=== PATIENT | male | born 1955 | race Caucasian/White ===

== ENCOUNTER 2018-08-31 16:11 | Inpatient (IN) | payer OTHER ==
[~2018-08-31] VITALS: Ht 185.4 cm; Wt 103.0 kg
--- NOTE | 2018-08-31 16:14 | ERD ---
ER Documentation Chief Complaint Chief Complaint Generalized weakness HPI The patient is a 62-year-old male, presenting to the ER because of generalized weakness for 1 day, he has been out of the sun for the last couple days and did not drink adequate fluids, he fell with and had a mechanical fall onto the couch yesterday, denies any head trauma, neck pain, chest pain, dyspnea, abdominal pain, vomiting, dysuria, diarrhea. He does not smoke nor drink nor does illicit drug Past medical/surgical history: None ROS All systems reviewed and are negative except as per history of present illness. Medications Home Meds No Active Prescriptions or Reported Meds Allergies Allergies: Coded Allergies: No Known Allergy (Unverified , 08/31/18) Physical Exam Vitals Vital Signs Date Temp Pulse Resp B/P (MAP) Pulse Ox O2 O2 Flow FiO2 Time Delivery Rate 08/31/18 98.6 68 18 139/72 98 16:15 (94) Physical Exam Const: No acute distress. Head: Atraumatic. Eyes: Normal Conjunctiva. ENT: Normal External Ears, Nose and Mouth. Neck: Full range of motion. No meningismus. Resp: Clear to auscultation bilaterally. Cardio: Regular rate and rhythm. Abd: Soft, non distended, normal bowel sounds, non tender. Skin: No petechiae or rashes. Back: No midline or flank tenderness. Ext: No cyanosis, or edema. Neur: Awake and alert. No focal deficit Psych: Normal Mood and Affect. Result Diagram: 08/31/18 1626 08/31/18 1626 Results 24 hrs Laboratory Tests Test 08/31/18 16:26 08/31/18 17:46 White Blood Count 22.2 10^3/ul Red Blood Count 5.35 10^6/ul Hemoglobin 14.6 g/dl Hematocrit 44.2 % Mean Corpuscular Volume 82.6 fl Mean Corpuscular Hemoglobin 27.3 pg Mean Corpuscular Hemoglobin Concent 33.0 g/dl Red Cell Distribution Width 14.1 % Platelet Count 293 10^3/UL Mean Platelet Volume 9.8 fl Immature Granulocytes % 0.200 % Neutrophils % % Segmented Neutrophils % (Manual) 22 % Lymphocytes % % Lymphocytes % (Manual) 69 % Monocytes % % Monocytes % (Manual) 7 % Eosinophils % % Eosinophils % (Manual) 2 % Basophils % % Nucleated Red Blood Cells % 0.0 /100WBC Immature Granulocytes # 0.050 10^3/ul Neutrophils # 10^3/ul Lymphocytes (Manual) 15.3 10^3/ul Lymphocytes # 10^3/ul Monocytes # 10^3/ul Monocytes # (Manual) 1.5 10^3/ul Eosinophils # 10^3/ul Basophils # 10^3/ul Nucleated Red Blood Cells # 10^3/ul Sodium Level 142 mmol/L Potassium Level 3.7 mmol/L Chloride Level 107 mmol/L Carbon Dioxide Level 27 mmol/L Anion Gap 8 Blood Urea Nitrogen 10 mg/dl Creatinine 0.89 mg/dl Est Glomerular Filtrat Rate mL/min > 60 mL/min Glucose Level 104 mg/dl Calcium Level 9.4 mg/dl Creatine Kinase 183 IU/L Bedside Urine pH (LAB) 6.0 Bedside Urine Protein (LAB) Negative Bedside Urine Glucose (UA) Negative Bedside Urine Ketones (LAB) Negative Bedside Urine Blood Trace-intact Bedside Urine Nitrite (LAB) Negative Bedside Urine Leukocyte Esterase (L Negative Procedures/MDM [place] [id number] Radiology Main Line: [phone] DIAGNOSTIC IMAGING REPORT Patient: FRAN BRITT : 1955 Age: 62 Sex: M MR #: [id number] DOS: 08/31/18 1645 Ordering MD: VERNON CASTILLO MD Location: E/R Room/Bed: PROCEDURE: CT Brain without contrast. CLINICAL INDICATION: Syncope. Trauma. TECHNIQUE: A CT of the brain was performed on a [facility] CT scanner utilizing axial imaging from the skull base through the vertex without IV contrast. Multiplanar reformatted images were made. Images were reviewed on a PACS workstation. The CTDIvol is 40 mGy and the DLP is 634 mGycm. DICOM images are available. One or more of the following dose reduction techniques were utilized: 1.) Automated exposure control 2.) Adjustment of the mA +/- kV according to patient's size 3.) Use of iterative reconstruction technique. COMPARISON: None FINDINGS: There is no intracranial hemorrhage, mass effect, or midline shift. No extra- axial fluid collection is seen. The ventricles and sulci are normal in size and configuration. Noted is a a well-demarcated non-hemorrhagic infarct on the superior medial aspect of the right cerebellar hemisphere. This is of unknown chronicity. the cuello white matter differentiation appears well-preserved. The visualized paranasal sinuses and osseous structures are grossly unremarkable. There is no skull fracture or scalp hematoma. IMPRESSION: No intracranial hemorrhage or skull fracture. Right cerebellar infarct of unknown chronicity. Consider MRI with diffusion weighting for more definitive diagnosis. .Reuben Myers MD, MD Date Time Electronically viewed and signed by .Reuben Myers MD, MD on 08/31/2018 17:13 .A/ CC: VERNON CASTILLO MD [phone] [place] [id number] Radiology Main Line: [phone] DIAGNOSTIC IMAGING REPORT Patient: FRAN BRITT : 1955 Age: 62 Sex: M MR #: [id number] DOS: 08/31/18 1621 Ordering MD: VERNON CASTILLO MD Location: E/R Room/Bed: PROCEDURE: XR Chest, 1 View CLINICAL INDICATION: Chest pain. TECHNIQUE: Frontal view of the chest. COMPARISON: None FINDINGS: LUNGS: No consolidative pulmonary infiltrates noted. PLEURAL SPACE: Unremarkable. No pneumothorax. HEART: Unremarkable. No cardiomegaly. MEDIASTINUM: Unremarkable. BONES/JOINTS: Degenerative spine changes are noted. VASCULATURE: The thoracic aorta is mildly tortuous. IMPRESSION: No acute cardiopulmonary disease demonstrated. RPTAT: [facility] Nikos Bose Physician Date Time Electronically viewed and signed by Nikos Bose Physician [employer] on 08/31/2018 16:38 RmC/ CC: VERNON CASTILLO MD [phone] EKG: Read by emergency physician Rate/Rhythm: Sinus bradycardia 54 beats/min QRS, ST, T-waves: No ST elevation, no T inversion Impression: Abnormal EKG MEDICAL MAKING DECISION: The patient is a 62-year-old male, presenting with acute generalized weakness, cerebellar infarct of the unknown, chronicity acute leukocytosis of unclear etiology. Blood culture and urine culture were submi tted. He was treated empirically with Rocephin 1 g IV The differential diagnoses considered include but are not limited to cerebellar stroke, UTI, pneumonia Departure Diagnosis: Primary Impression: Acute weakness Additional Impression: Leukocytosis Condition: Stable Comments I discussed the findings with the patient. I am waiting for the admitting physician Disclaimer: Inadvertent spelling and grammatical errors are likely due to EHR/dictation software use and do not reflect on the overall quality of patient care. Also, please note that the electronic time recorded on this note does not necessarily reflect the actual time of the patient encounter. VERNON CASTILLO MD Aug 31, 2018 16:14
[2018-08-31] MEDS ORDERED: ASPIRIN 325 MG TAB PO ONE (19:30)
[2018-09-01] MEDS: ASPIRIN (EC) 325 MG TAB PO SCH (09:32)
--- NOTE | 2018-09-01 11:19 | CONSI ---
Assessment/Plan Assessment/Plan Assessment/Plan (Recall) 62 M w/o reported cerebrovascular risk factors, who presents for evaluation of dizziness, incoordination, and falls x [address] revealed an age-indeterminate R cerebellar infarction, for which neurology is consulted. P: MRI brain for further characterization d/c CUS; Add CTA head and neck to evaluate the intracranial and posterior extracranial circulation Await Echocardiogram (w/ bubble study) Add ESR, RPR, UDS Agree w/ asa daily for now Add Lipitor hs PT/OT/ST as necessary Other management and supportive care per primary Will follow clinically Consultation Date/Type/Reason Admit Date/Time Type of Consult Neurology Reason for Consultation stroke Requesting Provider: BRIGIDO STEELE MD Date/Time of Note DATE: 09/01/18 TIME: 11:10 Hx of Present Illness 62 M s/ reported PMHx, who presents for evaluation of dizziness, vision change, and gait imbalance. Sx began 2 days ago.. Now incoordination persists in his right hand.. Denies headache, slurred speech, focal weakness or numbness or other acute neurologic concerns at this time. 12 PT ROS ow neg Objective Exam Vitals Vital Signs Date Temp Pulse Resp B/P (MAP) Pulse Ox O2 O2 Flow FiO2 Time Delivery Rate 09/01/18 72 18 125/83 99 Room Air 08:30 (97) 09/01/18 98.1 06:30 Exam PE: Gen Appearance: No Apparent Distress HEENT: Normocephalic Cardiovascular: Regular rate Lungs: Clear bilaterally Abdomen: Soft Extremities: Dry NE: The patient was alert and oriented. Language was mildly dysfluent. Fund of knowledge was adequate. Pupils were equal and reactive to light. There was no afferent pupillary defect. Visual frias were normal. Funduscopic examination was limited. Extra-ocular movements were full. Ptosis was absent. There was no nystagmus. Facial sensation was normal. Face was symmetric with normal strength. Hearing was intact. Palate movements were normal. Neck strength was normal. There was normal tongue bulk and speed of movement. Tone was normal. Muscle bulk was normal. I did not see fasciculations. Arms and legs were strong. Vibration sensation was normal. Temperature and pinprick sensation was normal. Rapid alternating movements were slow on the right. There was dysmetria on the right. There was no intention tremor. Gait was deferred due to bedrest. Arm and leg reflexes were 2+ and symmetric. Kennedy's sign was absent. Plantar responses were flexor. Results Result Diagram: 09/01/18 0623 09/01/18 0623 Results 24hrs Laboratory Tests Test 08/31/18 16:26 08/31/18 17:46 09/01/18 06:23 09/01/18 06:32 White Blood Count 22.2 H 21.3 H Red Blood Count 5.35 5.37 Hemoglobin 14.6 14.6 Hematocrit 44.2 44.7 Mean Corpuscular 82.6 83.2 Volume Mean Corpuscular 27.3 L 27.2 L Hemoglobin Mean Corpuscular 33.0 32.7 Hemoglobin Concent Red Cell 14.1 14.3 Distribution Width Platelet Count 293 269 Mean Platelet 9.8 9.4 Volume Immature 0.200 0.200 Granulocytes % Neutrophils % 35.9 L Segmented 22 L Neutrophils % (Manual) Lymphocytes % 57.6 H Lymphocytes % 69 H (Manual) Monocytes % 3.7 Monocytes % 7 (Manual) Eosinophils % 2.2 Eosinophils % 2 (Manual) Basophils % 0.4 Nucleated Red 0.0 0.0 Blood Cells % Immature 0.050 H 0.050 H Granulocytes # Neutrophils # 7.7 H Lymphocytes 15.3 H (Manual) Lymphocytes # 12.3 H Monocytes # 0.8 Monocytes # 1.5 H (Manual) Eosinophils # 0.5 Basophils # 0.1 Nucleated Red 0.0 Blood Cells # Sodium Level 142 143 Potassium Level 3.7 4.0 Chloride Level 107 109 Carbon Dioxide 27 26 Level Anion Gap 8 8 Blood Urea 10 12 Nitrogen Creatinine 0.89 0.80 Est Glomerular > 60 > 60 Filtrat Rate mL/min Glucose Level 104 106 Calcium Level 9.4 8.8 Creatine Kinase 183 Bedside Urine pH 6.0 (LAB) Bedside Urine Negative Protein (LAB) Bedside Urine Negative Glucose (UA) Bedside Urine Negative Ketones (LAB) Bedside Urine Trace-intact H Blood Bedside Urine Negative Nitrite (LAB) Bedside Urine Negative Leukocyte Esterase (L Total Bilirubin 0.6 Direct Bilirubin 0.00 Indirect Bilirubin 0.6 Aspartate Amino 26 Transf (AST/SGOT) Alanine 35 Aminotransferase ( ALT/SGPT) Alkaline 74 Phosphatase Total Protein 6.9 Albumin 3.7 Globulin 3.20 Albumin/Globulin 1.15 Ratio Triglycerides 155 H Level Cholesterol Level 153 LDL Cholesterol, 87 Calculated HDL Cholesterol 35 Cholesterol/HDL 4.3 Ratio Hemoglobin A1c 6.0 H Past Medical History reviewed Home Meds No Active Prescriptions or Reported Meds Medications Current Medications Aspirin (Ecotrin) 325 mg DAILY PO Last administered on 09/01/18at 09:32; Admin Dose 325 MG; Start 09/01/18 at 09:00 Sodium Chloride 1,000 ml @ 125 mls/hr Q8H IV ; Start 09/01/18 at 09:30 Allergies: Coded Allergies: No Known Allergy (Unverified , 08/31/18) Social History Smoking Status: Former smoker CARLOS PAULINO Sep 01, 2018 11:19
[2018-09-01] MEDS ORDERED: SOD CHLORIDE 0.9% 100 ML ONE (11:40)
[2018-09-01] MEDS ORDERED: IOHEXOL 100 ML ONE (11:40)
[2018-09-01] MEDS: SOD CHLORIDE 0.9% 1,000 ML IV SCH ×2 (12:05→18:18)
--- NOTE | 2018-09-01 14:52 | RADRPT ---
Echocardiogram Report Patient Name: FRAN BRITTPatient ID: [id number] : 1955 (62y 10m)Study Date: 09/01/2018 10:52:38 AM Gender: MAccession #: [id number] Tech: Abdias Jimenez ANUJA [facility] Ref.Physician: COURTNEY IVERSON Height(Cm): BSA: Weight(Kg): Quality: AdequateOrder Physician: COURTNEY IVERSON Account #: Procedures: Echocardiographic Report: Transthoracic echocardiogram with complete 2D, M-Mode, and doppler examination. Indications: Cerebrovascular Accident. Measurements: 2D/M Mode Doppler Measurement Value Normal Range Measurement Value Normal Range LVIDd 2D 4.9 [ 4.2 - 5.8 ] cm AV Peak Garrett 1.9 [ 100.0 - 170.0 ] cm/sec LVIDs 2D 3.0 [ 2.5 - 4.0 ] cm AV Peak PG 14.0 [ 2.0 - 9.0 ] mmHg LVPWd 2D 1.0 [ 0.6 - 1.0 ] cm LVOT Peak Garrett 1.2 [ 70.0 - 110.0 ] cm/sec IVSd 2D 0.9 [ 0.6 - 1.0 ] cm LVOT Peak PG 6.0 [ 2.0 - 6.0 ] mmHg AoR Diam 2D 3.2 [ 2.6 - 3.4 ] cm MV E Peak Garrett 0.8 [ 60.0 - 130.0 ] cm/sec EDV 2D 113.0 [ 62.0 - 150.0 ] ml MV A Peak Garrett 0.6 [ 100.0 - 120.0 ] cm/sec ESV 2D 34.7 [ 21.0 - 61.0 ] ml MV E/A 1.3 [ 0.8 - 1.5 ] ratio EF 2D 69.3 [ 52.0 - 72.0 ] percent MV Decel Time 236 [ 104 - 258 ] msec LA Dimen 2D 4.0 [ 3.0 - 4.0 ] cm Lat E` Garrett 0.1 [ 10.0 - 15.0 ] cm/sec Lateral E/E` 5.9 [ 1.0 - 2.0 ] ratio MV E/A 1.3 [ 0.8 - 1.5 ] ratio Findings: Left Ventricle: Normal left ventricular systolic function. Normal left ventricular cavity size. Normal left ventricular wall thickness. Ejection fraction is visually estimated at 65 %. Tissue Doppler/Mitral Doppler indices are within normal limits. Right Ventricle: Normal right ventricular size. Normal right ventricular systolic function. Left Atrium: The left atrium is normal in size. Right Atrium: The right atrium is normal in size. Mitral Valve: Normal appearance and function of the mitral valve with trace physiologic regurgitation. Aortic Valve: No significant aortic stenosis or insufficiency. Aortic cusps appear mildly calcified. Tricuspid Valve: Normal appearance and function of the tricuspid valve with trace physiologic regurgitation. Pulmonic Valve: Normal pulmonic valve appearance. Pericardium: Normal pericardium with no significant pericardial effusion. Aorta: Normal aortic root. IVC: Normal size and normal respiratory collapse consistent with normal right atrial pressure. Conclusions: Normal left ventricular systolic function. Normal left ventricular cavity size. Normal left ventricular wall thickness. Ejection fraction is visually estimated at 65 %. Tissue Doppler/Mitral Doppler indices are within normal limits. Normal right ventricular size. Normal right ventricular systolic function. The left atrium is normal in size. The right atrium is normal in size. No significant valvular stenosis or regurgitation seen. Normal pericardium with no significant pericardial effusion. Electronically Signed By: Preet Larkin 2018-09-01 14:51:54 PDT
--- NOTE | 2018-09-01 15:49 | HP ---
Date/Time of Note Date/Time of Note DATE: 09/01/18 TIME: 15:45 Assessment/Plan VTE Prophylaxis SCD applied (from Nsg): Yes Pharmacological prophylaxis: NA/contraindicated Pharm contraindication: other Lines/Catheters IV Catheter Type (from Nrs): Peripheral IV Assessment/Plan Hospital Course 62 years old male with no significant past medical history who endorses drinking energy drinks on a daily basis presented with 2 days of poor balance. On examination right sided dysmetria and poor balance was noted. CT of the head without contrast showed Right cerebellar infarct of unknown chronicity. CT angiogram of the brain was significant for suspected associated occlusion of the right superior cerebellar artery. As well as Occlusion at the left vertebral artery origin; left vertebral artery reconstitutes at the mid cervical portion and is small / irregular, with filling defect seen in the distal cervical portion suspicious for thrombus and / or dissection. Part of a CVA work-up echocardiogram with agitated saline was done which was unremarkable. Urine toxicology screen was positive for presence of amphetamines. However patient denies using any illicit drugs. #Acute cerebellar dysmetria in the setting of acute cerebrovascular accident Out of the window for TPA as his symptoms are started 2 days ago. -Follow-up with MRI of the brain - aspirin, statin, antihypertensive Norvasc -Continue telemetry monitoring, patient benefits from long-term monitoring as outpatient looking for arrhythmias -Awaiting CTA neck -Follow-up with neurology recommendations #Leukocytosis No signs of infection. No fever. Chest x-ray is unremarkable for pneumonia. No urinary symptoms.. Leukocytosis is lymphocyte predominant. -Monitor #Prophylaxis: SCDs and Pepcid Problems: (1) Cerebellar dysmetria Status: Acute (2) CVA (cerebral vascular accident) Status: Acute Result Diagram: 09/01/1862209/01/1823 Results 24hrs Laboratory Tests Test 08/31/18 16:26 08/31/18 17:46 09/01/18 06:23 09/01/18 06:32 White Blood Count 22.2 H 21.3 H Red Blood Count 5.35 5.37 Hemoglobin 14.6 14.6 Hematocrit 44.2 44.7 Mean Corpuscular 82.6 83.2 Volume Mean Corpuscular 27.3 L 27.2 L Hemoglobin Mean Corpuscular 33.0 32.7 Hemoglobin Concent Red Cell 14.1 14.3 Distribution Width Platelet Count 293 269 Mean Platelet 9.8 9.4 Volume Immature 0.200 0.200 Granulocytes % Neutrophils % 35.9 L Segmented 22 L Neutrophils % (Manual) Lymphocytes % 57.6 H Lymphocytes % 69 H (Manual) Monocytes % 3.7 Monocytes % 7 (Manual) Eosinophils % 2.2 Eosinophils % 2 (Manual) Basophils % 0.4 Nucleated Red 0.0 0.0 Blood Cells % Immature 0.050 H 0.050 H Granulocytes # Neutrophils # 7.7 H Lymphocytes 15.3 H (Manual) Lymphocytes # 12.3 H Monocytes # 0.8 Monocytes # 1.5 H (Manual) Eosinophils # 0.5 Basophils # 0.1 Nucleated Red 0.0 Blood Cells # Sodium Level 142 143 Potassium Level 3.7 4.0 Chloride Level 107 109 Carbon Dioxide 27 26 Level Anion Gap 8 8 Blood Urea 10 12 Nitrogen Creatinine 0.89 0.80 Est Glomerular > 60 > 60 Filtrat Rate mL/min Glucose Level 104 106 Calcium Level 9.4 8.8 Creatine Kinase 183 Bedside Urine pH 6.0 (LAB) Bedside Urine Negative Protein (LAB) Bedside Urine Negative Glucose (UA) Bedside Urine Negative Ketones (LAB) Bedside Urine Trace-intact H Blood Bedside Urine Negative Nitrite (LAB) Bedside Urine Negative Leukocyte Esterase (L Total Bilirubin 0.6 Direct Bilirubin 0.00 Indirect Bilirubin 0.6 Aspartate Amino 26 Transf (AST/SGOT) Alanine 35 Aminotransferase ( ALT/SGPT) Alkaline 74 Phosphatase Total Protein 6.9 Albumin 3.7 Globulin 3.20 Albumin/Globulin 1.15 Ratio Triglycerides 155 H Level Cholesterol Level 153 LDL Cholesterol, 87 Calculated HDL Cholesterol 35 Cholesterol/HDL 4.3 Ratio Hemoglobin A1c 6.0 H Test 09/01/18 11:16 09/01/18 13:50 Erythrocyte 2 Sedimentation Rate Urine Opiates Negative Screen Urine Barbiturates Negative Urine Amphetamines Positive Screen Urine Negative Benzodiazepines Screen Urine Cocaine Negative Screen Urine Cannabinoids Negative HPI/ROS Admit Date/Time Admit Date/Time Hx of Present Illness This is a very pleasant 62 years old male with no significant past medical history, no surgical history who presents with episodes of confusion and poor balance which is started on Wednesday after he had brunch with his family. He sat down when this episode happened and could not walk because of bilateral lower extremity weakness and difficulty with his balance. He found it difficult to speak. He also endorses right upper extremity numbness and weakness. Also endorses blurry vision at the time which has resolved. Patient did not seek medical attention at that time. His symptoms persisted and he presented to the emergency room yesterday evening. He denies chest pain, palpitation, change in urination or bowel habits. Denies fever or chills. Denies change in weight or appetite. Denies intolerance to higher low temperatures. Denies urinary frequency or dysuria. Family history significant for heart disease from paternal side. His dad in his 90s but he was diagnosed with valvular disease in his late 50s. Social history: Drinks alcohol socially, last drink was on Wednesday he drank 4 beers. Denies using illicit drugs. He has recently been drinking lots of energy drinks such as Monster and red bull. PMH/Family/Social Past Medical History Medications Current Medications Aspirin (Ecotrin) 325 mg DAILY PO Last administered on 09/01/18at 09:32; Admin Dose 325 MG; Start 09/01/18 at 09:00 Sodium Chloride 1,000 ml @ 125 mls/hr Q8H IV Last administered on 09/01/18at 12:05; Admin Dose 125 MLS/HR; Start 09/01/18 at 09:30 Atorvastatin Calcium (Lipitor) 40 mg HS PO ; Start 09/01/18 at 21:00 Amlodipine Besylate (Norvasc) 5 mg DAILY PO ; Start 09/01/18 at 15:30 Coded Allergies: No Known Allergy (Unverified , 08/31/18) Social History Smoking Status: Former smoker Exam/Review of Systems Vital Signs Vitals Vital Signs Date Temp Pulse Resp B/P (MAP) Pulse Ox O2 O2 Flow FiO2 Time Delivery Rate 09/01/18 99.0 50 20 150/72 99 Room Air 12:45 (98) Exam Exam Gen.: In no acute distress, pleasant and cooperative Eyes: Anicteric, conjunctiva normal, PERRLA, EOM intact HEENT: Normocephalic, atraumatic, hearing grossly intact, oral mucosa moist, no oral lesions Neck: Supple, no masses, trachea midline Cardiovascular: Regular rate and rhythm, no peripheral edema, no murmurs, no gallops, no rubs Respiratory: Clear to auscultation bilaterally, no use of accessory muscles of respiration, no wheezes, expiration not prolonged Extremities: No cyanosis, no edema, no calf tenderness, pulses bilaterally palpable, extremities warm and perfused Abdomen: Soft, not distended, nontender, bowel sounds present, no guarding, no rebound Neurological: Alert and oriented x3, speech normal, CN 2-12 no deficit, mild right upper extremity dysmetria noted, gait is impaired due to balance : No Torres catheter Dermatologic no rash, no ulcers Heme: No acute bleeding, no ecchymosis or petechia Psych: No anxiety depression, mood and affect appropriate COURTNEY IVERSON MD Sep 01, 2018 15:49
[2018-09-01 17:16] VITALS: Ht 185.4 cm; Wt 103.0 kg
[2018-09-01 17:17] VITALS: BP 169/89; PULSE 69; RESP 18
[2018-09-01 17:18] VITALS: PULSE 55
[2018-09-01] MEDS: AMLODIPINE 5 MG TAB PO SCH (18:08)
[2018-09-01 20:00] VITALS: BP 149/82; PULSE 55; RESP 20
[2018-09-01] MEDS: ATORVASTATIN 40 MG TAB PO SCH (21:17)
[2018-09-02] VITALS (14 sets, daily range): BP systolic 115–149; BP diastolic 58–85; PULSE 55–97; RESP 18–22
[2018-09-02] MEDS: SOD CHLORIDE 0.9% 1,000 ML IV SCH ×2 (02:16→10:29)
[2018-09-02] MEDS: ASPIRIN (EC) 325 MG TAB PO SCH (08:32)
[2018-09-02] MEDS: AMLODIPINE 5 MG TAB PO SCH (08:32)
--- NOTE | 2018-09-02 15:46 | CONS ---
Assessment/Plan Assessment/Plan Assessment/Plan (Recall) 62 M w/o reported cerebrovascular risk factors, who presents for evaluation of dizziness, incoordination, and falls x 2 days.. 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 CTA H/N is notable for a L vert artery irregularity suspicious for thrombus vs. dissection. UDS + amphetamines, a possible contributor to dissection.. Echocardiogram w/o bubble study is unrevealing. RPR neg; ESR 2 P: MRA head/neck for further vascular characterization Continue asa/lipitor daily for now PT/OT/ST as necessary, with plan for acute rehab on d/c where possible Other management and supportive care per primary Consultation Date/Type/Reason Admit Date/Time Aug 31, 2018 at 19:22 Type of Consult Neurology Reason for Consultation stroke Requesting Provider: BRIGIDO STEELE MD Date/Time of Note DATE: 09/02/18 TIME: 15:46 24 HR Interval Summary Free Text/Dictation Continues acute care Exam/Review of Systems Exam Vitals Vital Signs Date Temp Pulse Resp B/P (MAP) Pulse Ox O2 O2 Flow FiO2 Time Delivery Rate 09/02/18 96.6 57 20 128/80 22 Room Air 15:38 (96) 09/02/18 2.0 12:28 Intake and Output 09/01/18 09/01/18 09/02/18 1515:00 23:00 07:00 IntakeIntake Total 240 ml 160 ml BalanceBalance 240 ml 160 ml Results Result Diagram: 09/02/18 0703 09/02/18 0703 Results 24hrs Laboratory Tests Test 09/02/18 07:03 09/02/18 10:27 White Blood Count 20.5 H Red Blood Count 5.33 Hemoglobin 14.7 Hematocrit 44.4 Mean Corpuscular Volume 83.3 Mean Corpuscular Hemoglobin 27.6 L Mean Corpuscular Hemoglobin Concent 33.1 Red Cell Distribution Width 14.0 Platelet Count 266 Mean Platelet Volume 10.0 Immature Granulocytes % 0.300 Neutrophils % 39.4 Segmented Neutrophils % (Manual) 25 L Band Neutrophils % (Manual) 11 H Lymphocytes % 53.8 H Lymphocytes % (Manual) 52 H Reactive Lymphocytes % (Manual) 7 H Monocytes % 3.7 Monocytes % (Manual) 4 Eosinophils % 2.5 Basophils % 0.3 Basophils % (Manual) 1 Nucleated Red Blood Cells % 0.0 Immature Granulocytes # 0.070 H Neutrophils # 8.1 H Neutrophils # (Manual) 5.6 Band Neutrophils # 2.2 H Lymphocytes (Manual) 10.6 H Lymphocytes # 11.1 H Reactive Lymphocytes # 1.4 H Monocytes # 0.8 Monocytes # (Manual) 0.8 Eosinophils # 0.5 Basophils # 0.1 Basophils # (Manual) 0.2 H Nucleated Red Blood Cells # 0.0 Platelet Estimate NORMAL Polychromasia 2+ Anisocytosis 1+ Microcytosis 1+ Ovalocytes 2+ Sodium Level 142 Potassium Level 4.0 Chloride Level 107 Carbon Dioxide Level 28 Anion Gap 7 Blood Urea Nitrogen 10 Creatinine 0.83 Est Glomerular Filtrat Rate mL/min > 60 Glucose Level 109 Calcium Level 9.2 Phosphorus Level 3.7 Magnesium Level 2.1 Total Bilirubin 0.7 Direct Bilirubin 0.00 Indirect Bilirubin 0.7 Aspartate Amino Transf (AST/SGOT) 29 Alanine Aminotransferase (ALT/SGPT) 23 Alkaline Phosphatase 80 Total Protein 6.9 Albumin 3.9 Globulin 3.00 Albumin/Globulin Ratio 1.30 Prothrombin Time 12.8 Prothrombin Time Ratio 1.0 INR International Normalized Ratio 0.95 Medications Medication Current Medications Aspirin (Ecotrin) 325 mg DAILY PO Last administered on 09/02/18 08:32; Admin Dose 325 MG; Start 09/01/18 at 09:00 Sodium Chloride 1,000 ml @ 125 mls/hr Q8H IV Last administered on 09/02/18 10:29; Admin Dose 125 MLS/HR; Start 09/01/18 at 09:30 Atorvastatin Calcium (Lipitor) 40 mg HS PO Last administered on 09/01/18 21:17; Admin Dose 40 MG; Start 09/01/18 at 21:00 Amlodipine Besylate (Norvasc) 5 mg DAILY PO Last administered on 09/02/18 08:32; Admin Dose 5 MG; Start 09/01/18 at 15:30 CARLOS PAULINO Sep 02, 2018 15:46
--- NOTE | 2018-09-02 20:16 | PN ---
Date/Time of Note Date/Time of Note DATE: 09/02/18 TIME: 20:09 Assessment/Plan VTE Prophylaxis Risk score (from Ns)>0 risk: 1 SCD applied (from Ns): Yes Pharmacological prophylaxis: heparin Lines/Catheters IV [facility] Type ([facility]): Peripheral IV Assessment/Plan Hospital Course 62 years old male with no significant past medical history who endorses drinking energy drinks on a daily basis presented with 2 days of poor balance. On examination right sided dysmetria and poor balance was noted. CT of the head without contrast showed Right cerebellar infarct of unknown chronicity. CT angiogram of the brain was significant for suspected associated occlusion of the right superior cerebellar artery. As well as Occlusion at the left vertebral artery origin; left vertebral artery reconstitutes at the mid cervical portion and is small / irregular, with filling defect seen in the distal cervical portion suspicious for thrombus and / or dissection. Part of a CVA work-up ech ocardiogram with agitated saline was done which was unremarkable. Urine toxicology screen was positive for presence of amphetamines. However patient denies using any illicit drugs. MRI of the brain did show evidence of Acute / recent right superior cerebellar infarction measuring 2.4 cm. There is minimal fourth ventricular effacement or evidence of hydrocephalus. #Acute cerebellar dysmetria in the setting of acute cerebrovascular accident Out of the window for TPA as his symptoms are started 2 days ago. - aspirin, statin, antihypertensive Norvasc -Continue telemetry monitoring, patient benefits from long-term monitoring as outpatient looking for arrhythmias -ARU evaluation #persistent Leukocytosis, without source of infection rule out malignancy No signs of infection. No fever. Chest x-ray is unremarkable for pneumonia. No urinary symptoms.. Leukocytosis is lymphocyte predominant.. CT CAP wo contrast was significant for mild mediastinal LAP . DW hematology Dr Chamberlain who reviewed his chart and stated that he will need close outpatient follow up to rule out CLL #Prophylaxis: SCDs and Pepcid Result Diagram: 09/02/18 0703 09/02/18 0703 Results 24hrs Laboratory Tests Test 09/02/18 07:03 09/02/18 10:27 White Blood Count 20.5 H Red Blood Count 5.33 Hemoglobin 14.7 Hematocrit 44.4 Mean Corpuscular Volume 83.3 Mean Corpuscular Hemoglobin 27.6 L Mean Corpuscular Hemoglobin Concent 33.1 Red Cell Distribution Width 14.0 Platelet Count 266 Mean Platelet Volume 10.0 Immature Granulocytes % 0.300 Neutrophils % 39.4 Segmented Neutrophils % (Manual) 25 L Band Neutrophils % (Manual) 11 H Lymphocytes % 53.8 H Lymphocytes % (Manual) 52 H Reactive Lymphocytes % (Manual) 7 H Monocytes % 3.7 Monocytes % (Manual) 4 Eosinophils % 2.5 Basophils % 0.3 Basophils % (Manual) 1 Nucleated Red Blood Cells % 0.0 Immature Granulocytes # 0.070 H Neutrophils # 8.1 H Neutrophils # (Manual) 5.6 Band Neutrophils # 2.2 H Lymphocytes (Manual) 10.6 H Lymphocytes # 11.1 H Reactive Lymphocytes # 1.4 H Monocytes # 0.8 Monocytes # (Manual) 0.8 Eosinophils # 0.5 Basophils # 0.1 Basophils # (Manual) 0.2 H Nucleated Red Blood Cells # 0.0 Platelet Estimate NORMAL Polychromasia 2+ Anisocytosis 1+ Microcytosis 1+ Ovalocytes 2+ Sodium Level 142 Potassium Level 4.0 Chloride Level 107 Carbon Dioxide Level 28 Anion Gap 7 Blood Urea Nitrogen 10 Creatinine 0.83 Est Glomerular Filtrat Rate mL/min > 60 Glucose Level 109 Calcium Level 9.2 Phosphorus Level 3.7 Magnesium Level 2.1 Total Bilirubin 0.7 Direct Bilirubin 0.00 Indirect Bilirubin 0.7 Aspartate Amino Transf (AST/SGOT) 29 Alanine Aminotransferase (ALT/SGPT) 23 Alkaline Phosphatase 80 Total Protein 6.9 Albumin 3.9 Globulin 3.00 Albumin/Globulin Ratio 1.30 Prothrombin Time 12.8 Prothrombin Time Ratio 1.0 INR International Normalized Ratio 0.95 Exam/Review of Systems Exam Vitals Vital Signs Date Temp Pulse Resp B/P (MAP) Pulse Ox O2 O2 Flow FiO2 Time Delivery Rate 09/02/18 60 20:00 09/02/18 97.4 18 133/69 94 19:04 (90) 09/02/18 Room Air 15:38 09/02/18 2.0 12:28 Intake and Output 09/01/18 09/01/18 09/02/18 1515:00 23:00 07:00 IntakeIntake Total 240 ml 160 ml BalanceBalance 240 ml 160 ml Exam Gen.: In no acute distress, pleasant and cooperative Eyes: Anicteric, conjunctiva normal, PERRLA, EOM intact HEENT: Normocephalic, atraumatic, hearing grossly intact, oral mucosa moist, no oral lesions Neck: Supple, no masses, trachea midline Cardiovascular: Regular rate and rhythm, no peripheral edema, no murmurs, no gallops, no rubs Respiratory: Clear to auscultation bilaterally, no use of accessory muscles of respiration, no wheezes, expiration not prolonged Extremities: No cyanosis, no edema, no calf tenderness, pulses bilaterally palpable, extremities warm and perfused Abdomen: Soft, not distended, nontender, bowel sounds present, no guarding, no rebound Neurological: Alert and oriented x3, speech normal, CN 2-12 no deficit, mild right upper extremity dysmetria noted, gait is impaired due to impaired balance : No Torres catheter Dermatologic no rash, no ulcers Heme: No acute bleeding, no ecchymosis or petechia Psych: No anxiety depression, mood and affect appropriate Results Results 24hrs Laboratory Tests Test 09/02/18 07:03 09/02/18 10:27 White Blood Count 20.5 H Red Blood Count 5.33 Hemoglobin 14.7 Hematocrit 44.4 Mean Corpuscular Volume 83.3 Mean Corpuscular Hemoglobin 27.6 L Mean Corpuscular Hemoglobin Concent 33.1 Red Cell Distribution Width 14.0 Platelet Count 266 Mean Platelet Volume 10.0 Immature Granulocytes % 0.300 Neutrophils % 39.4 Segmented Neutrophils % (Manual) 25 L Band Neutrophils % (Manual) 11 H Lymphocytes % 53.8 H Lymphocytes % (Manual) 52 H Reactive Lymphocytes % (Manual) 7 H Monocytes % 3.7 Monocytes % (Manual) 4 Eosinophils % 2.5 Basophils % 0.3 Basophils % (Manual) 1 Nucleated Red Blood Cells % 0.0 Immature Granulocytes # 0.070 H Neutrophils # 8.1 H Neutrophils # (Manual) 5.6 Band Neutrophils # 2.2 H Lymphocytes (Manual) 10.6 H Lymphocytes # 11.1 H Reactive Lymphocytes # 1.4 H Monocytes # 0.8 Monocytes # (Manual) 0.8 Eosinophils # 0.5 Basophils # 0.1 Basophils # (Manual) 0.2 H Nucleated Red Blood Cells # 0.0 Platelet Estimate NORMAL Polychromasia 2+ Anisocytosis 1+ Microcytosis 1+ Ovalocytes 2+ Sodium Level 142 Potassium Level 4.0 Chloride Level 107 Carbon Dioxide Level 28 Anion Gap 7 Blood Urea Nitrogen 10 Creatinine 0.83 Est Glomerular Filtrat Rate mL/min > 60 Glucose Level 109 Calcium Level 9.2 Phosphorus Level 3.7 Magnesium Level 2.1 Total Bilirubin 0.7 Direct Bilirubin 0.00 Indirect Bilirubin 0.7 Aspartate Amino Transf (AST/SGOT) 29 Alanine Aminotransferase (ALT/SGPT) 23 Alkaline Phosphatase 80 Total Protein 6.9 Albumin 3.9 Globulin 3.00 Albumin/Globulin Ratio 1.30 Prothrombin Time 12.8 Prothrombin Time Ratio 1.0 INR International Normalized Ratio 0.95 Medications Medication Current Medications Aspirin (Ecotrin) 325 mg DAILY PO Last administered on 09/02/18 08:32; Admin Dose 325 MG; Start 09/01/18 at 09:00 Atorvastatin Calcium (Lipitor) 40 mg HS PO Last administered on 09/01/18 21:17; Admin Dose 40 MG; Start 09/01/18 at 21:00 Amlodipine Besylate (Norvasc) 5 mg DAILY PO Last administered on 09/02/18 08:32; Admin Dose 5 MG; Start 09/01/18 at 15:30 COURTNEY IVERSON MD Sep 02, 2018 20:16
[2018-09-02] MEDS: ATORVASTATIN 40 MG TAB PO SCH (21:59)
[2018-09-02] MEDS: HEPARIN 5,000 UNIT/1 ML VIAL SC SCH (22:09)
[2018-09-03] VITALS (9 sets, daily range): BP systolic 119–159; BP diastolic 70–82; PULSE 46–63; RESP 18–19
[2018-09-03] MEDS: ASPIRIN (EC) 325 MG TAB PO SCH (08:56)
[2018-09-03] MEDS: AMLODIPINE 5 MG TAB PO SCH (08:56)
--- NOTE | 2018-09-03 09:06 | CONS ---
Assessment/Plan Assessment/Plan Assessment/Plan (Recall) 62 M w/o reported cerebrovascular risk factors, who presents for evaluation of dizziness, incoordination, and falls x 2 days.. 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 CTA H/N and MRI Head and neck are notable for a L vert artery irregularity suspicious for thrombus vs. dissection. UDS + amphetamines, a possible contributor to dissection.. Echocardiogram w/o bubble study is unrevealing. RPR neg; ESR 2 P: Continue asa/lipitor daily for now PT/OT/ST as necessary Other management and supportive care per primary Consultation Date/Type/Reason Admit Date/Time Aug 31, 2018 at 19:22 Type of Consult Neurology Reason for Consultation stroke Requesting Provider: BRIGIDO STEELE MD Date/Time of Note DATE: 09/03/18 TIME: 09:06 24 HR Interval Summary Free Text/Dictation Continues acute care Exam/Review of Systems Exam Vitals Vital Signs Date Temp Pulse Resp B/P (MAP) Pulse Ox O2 O2 Flow FiO2 Time Delivery Rate 09/03/18 46 08:10 09/03/18 98.3 18 119/73 98 Room Air 07:41 (88) 09/02/18 2.0 12:28 Intake and Output 09/02/18 09/02/18 09/03/18 1515:00 23:00 07:00 IntakeIntake Total 1000 ml 1605 ml 450 ml BalanceBalance 1000 ml 1605 ml 450 ml Exam PE: Gen Appearance: No Apparent Distress HEENT: Normocephalic Cardiovascular: Regular rate Lungs: Clear bilaterally Abdomen: Soft Extremities: Dry NE: The patient was alert and oriented. Language was normal. Fund of knowledge was normal. Pupils were equal and reactive to light. There was no afferent pupillary defect. Visual frias were normal. Funduscopic examination was limited. Extra-ocular movements were full. Ptosis was absent. There was no nystagmus. Facial sensation was normal. Face was symmetric with normal strength. Hearing was intact. Palate movements were normal. Neck strength was normal. There was normal tongue bulk and speed of movement. Tone was normal. Muscle bulk was normal. I did not see fasciculations. Arms and legs were strong. Vibration sensation was normal. Temperature and pinprick sensation was normal. Rapid alternating movements were normal. There was dysmetria on the right. There was no intention tremor. Gait was mildly unsteady. Arm and leg reflexes were symmetric. Kennedy's sign was absent. Plantar r esponses were flexor. Results Result Diagram: 09/03/1861109/03/18611 Results 24hrs Laboratory Tests Test 09/02/18 10:27 09/03/18 06:12 Prothrombin Time 12.8 Prothrombin Time Ratio 1.0 INR International Normalized Ratio 0.95 White Blood Count 18.5 H Red Blood Count 5.44 Hemoglobin 14.8 Hematocrit 45.1 Mean Corpuscular Volume 82.9 Mean Corpuscular Hemoglobin 27.2 L Mean Corpuscular Hemoglobin Concent 32.8 Red Cell Distribution Width 13.7 Platelet Count 263 Mean Platelet Volume 9.9 Immature Granulocytes % 0.300 Neutrophils % Lymphocytes % Monocytes % Eosinophils % Basophils % Nucleated Red Blood Cells % 0.0 Immature Granulocytes # 0.060 H Neutrophils # Lymphocytes # Monocytes # Eosinophils # Basophils # Nucleated Red Blood Cells # Sodium Level 141 Potassium Level 4.0 Chloride Level 108 Carbon Dioxide Level 27 Anion Gap 6 Blood Urea Nitrogen 12 Creatinine 0.85 Est Glomerular Filtrat Rate mL/min > 60 Glucose Level 118 Calcium Level 9.4 Phosphorus Level 3.8 Magnesium Level 2.1 Total Bilirubin 0.4 Direct Bilirubin 0.00 Indirect Bilirubin 0.4 Aspartate Amino Transf (AST/SGOT) 27 Alanine Aminotransferase (ALT/SGPT) 27 Alkaline Phosphatase 99 Total Protein 6.9 Albumin 3.9 Globulin 3.00 Albumin/Globulin Ratio 1.30 Medications Medication Current Medications Aspirin (Ecotrin) 325 mg DAILY PO Last administered on 09/02/18 08:32; Admin Dose 325 MG; Start 09/01/18 at 09:00 Atorvastatin Calcium (Lipitor) 40 mg HS PO Last administered on 09/02/18at 21:59; Admin Dose 40 MG; Start 09/01/18 at 21:00 Amlodipine Besylate (Norvasc) 5 mg DAILY PO Last administered on 09/02/18 08:32; Admin Dose 5 MG; Start 09/01/18 at 15:30 Heparin Sodium (Porcine) (Heparin (5000 Units/1ml)) 5,000 unit BID SC Last administered on 09/02/18 22:09; Admin Dose 5,000 UNIT; Start 09/02/18 at 21:00 CARLOS PAULINO 15, 2019 09:06
[2018-09-03] MEDS: HEPARIN 5,000 UNIT/1 ML VIAL SC SCH ×2 (09:15→21:53)
--- NOTE | 2018-09-03 13:29 | PN ---
Date/Time of Note Date/Time of Note DATE: 09/03/18 TIME: 13:27 Assessment/Plan VTE Prophylaxis Risk score (from Ns)>0 risk: 1 SCD applied (from [facility] [place]): Yes SCD contraindicated: other Pharmacological prophylaxis: LMWH Lines/Catheters IV C[facility] Type (from [facility]): Peripheral IV Assessment/Plan Assessment/Plan 1. cerebellar cva, cont 2* prevention, await mra results, min deficits noted at this time 2. possible CLL, outpatient heme follow up Result Diagram: 09/03/18 0612 09/03/18 0612 Results 24hrs Laboratory Tests Test 09/03/18 06:12 White Blood Count 18.5 H Red Blood Count 5.44 Hemoglobin 14.8 Hematocrit 45.1 Mean Corpuscular Volume 82.9 Mean Corpuscular Hemoglobin 27.2 L Mean Corpuscular Hemoglobin Concent 32.8 Red Cell Distribution Width 13.7 Platelet Count 263 Mean Platelet Volume 9.9 Immature Granulocytes % 0.300 Neutrophils % Segmented Neutrophils % (Manual) 31 L Band Neutrophils % (Manual) 5 H Lymphocytes % Lymphocytes % (Manual) 45 Reactive Lymphocytes % (Manual) 3 H Monocytes % Monocytes % (Manual) 5 Eosinophils % Eosinophils % (Manual) 10 H Basophils % Basophils % (Manual) 1 Nucleated Red Blood Cells % 0.0 Immature Granulocytes # 0.060 H Neutrophils # Neutrophils # (Manual) 5.9 Band Neutrophils # 0.9 H Lymphocytes (Manual) 8.3 H Lymphocytes # Reactive Lymphocytes # 0.5 H Monocytes # Monocytes # (Manual) 0.9 Eosinophils # Basophils # Basophils # (Manual) 0.1 H Nucleated Red Blood Cells # Platelet Estimate NORMAL Giant Platelets 3 H Sodium Level 141 Potassium Level 4.0 Chloride Level 108 Carbon Dioxide Level 27 Anion Gap 6 Blood Urea Nitrogen 12 Creatinine 0.85 Est Glomerular Filtrat Rate mL/min > 60 Glucose Level 118 Calcium Level 9.4 Phosphorus Level 3.8 Magnesium Level 2.1 Total Bilirubin 0.4 Direct Bilirubin 0.00 Indirect Bilirubin 0.4 Aspartate Amino Transf (AST/SGOT) 27 Alanine Aminotransferase (ALT/SGPT) 27 Alkaline Phosphatase 99 Total Protein 6.9 Albumin 3.9 Globulin 3.00 Albumin/Globulin Ratio 1.30 Subjective 24 Hr Interval Summary Free Text/Dictation no complaints, eating well, ambulating Exam/Review of Systems Exam Vitals Vital Signs Date Temp Pulse Resp B/P (MAP) Pulse Ox O2 O2 Flow FiO2 Time Delivery Rate 09/03/18 52 12:05 09/03/18 98.2 18 125/73 99 Room Air 11:37 (90) 09/02/18 2.0 12:28 Intake and Output 09/02/18 09/02/18 09/03/18 1515:00 23:00 07:00 IntakeIntake Total 1000 ml 1605 ml 450 ml BalanceBalance 1000 ml 1605 ml 450 ml Exam nad, ctab, rrr, speech clear no ataxia on ambulation Results Results 24hrs Laboratory Tests Test 09/03/18 06:12 White Blood Count 18.5 H Red Blood Count 5.44 Hemoglobin 14.8 Hematocrit 45.1 Mean Corpuscular Volume 82.9 Mean Corpuscular Hemoglobin 27.2 L Mean Corpuscular Hemoglobin Concent 32.8 Red Cell Distribution Width 13.7 Platelet Count 263 Mean Platelet Volume 9.9 Immature Granulocytes % 0.300 Neutrophils % Segmented Neutrophils % (Manual) 31 L Band Neutrophils % (Manual) 5 H Lymphocytes % Lymphocytes % (Manual) 45 Reactive Lymphocytes % (Manual) 3 H Monocytes % Monocytes % (Manual) 5 Eosinophils % Eosinophils % (Manual) 10 H Basophils % Basophils % (Manual) 1 Nucleated Red Blood Cells % 0.0 Immature Granulocytes # 0.060 H Neutrophils # Neutrophils # (Manual) 5.9 Band Neutrophils # 0.9 H Lymphocytes (Manual) 8.3 H Lymphocytes # Reactive Lymphocytes # 0.5 H Monocytes # Monocytes # (Manual) 0.9 Eosinophils # Basophils # Basophils # (Manual) 0.1 H Nucleated Red Blood Cells # Platelet Estimate NORMAL Giant Platelets 3 H Sodium Level 141 Potassium Level 4.0 Chloride Level 108 Carbon Dioxide Level 27 Anion Gap 6 Blood Urea Nitrogen 12 Creatinine 0.85 Est Glomerular Filtrat Rate mL/min > 60 Glucose Level 118 Calcium Level 9.4 Phosphorus Level 3.8 Magnesium Level 2.1 Total Bilirubin 0.4 Direct Bilirubin 0.00 Indirect Bilirubin 0.4 Aspartate Amino Transf (AST/SGOT) 27 Alanine Aminotransferase (ALT/SGPT) 27 Alkaline Phosphatase 99 Total Protein 6.9 Albumin 3.9 Globulin 3.00 Albumin/Globulin Ratio 1.30 Medications Medication Current Medications Aspirin (Ecotrin) 325 mg DAILY PO Last administered on 09/03/18at 08:56; Admin Dose 325 MG; Start 09/01/18 at 09:00 Atorvastatin Calcium (Lipitor) 40 mg HS PO Last administered on 09/02/18 21:59; Admin Dose 40 MG; Start 09/01/18 at 21:00 Amlodipine Besylate (Norvasc) 5 mg DAILY PO Last administered on 09/03/18 08:56; Admin Dose 5 MG; Start 09/01/18 at 15:30 Heparin Sodium (Porcine) (Heparin (5000 Units/1ml)) 5,000 unit BID SC Last administered on 09/03/18 09:15; Admin Dose 5,000 UNIT; Start 09/02/18 at 21:00 PIA SORIANO MD Sep 03, 2018 13:29
[2018-09-03] MEDS: ATORVASTATIN 40 MG TAB PO SCH (21:41)
[2018-09-04] VITALS (11 sets, daily range): BP systolic 115–135; BP diastolic 62–78; PULSE 56–72; RESP 18–20
[2018-09-04] MEDS: BENZONATATE 100 MG CAP PO PRN ×4 (02:13→20:52)
[2018-09-04] MEDS: AMLODIPINE 5 MG TAB PO SCH (08:38)
[2018-09-04] MEDS: ASPIRIN (EC) 325 MG TAB PO SCH (08:38)
[2018-09-04] MEDS: HEPARIN 5,000 UNIT/1 ML VIAL SC SCH ×2 (09:26→20:49)
--- NOTE | 2018-09-04 13:10 | PN ---
Date/Time of Note Date/Time of Note DATE: 09/04/18 TIME: 13:08 Assessment/Plan VTE Prophylaxis Risk score (from Ns)>0 risk: 1 SCD applied (from Ns): Yes Pharmacological prophylaxis: LMWH Lines/Catheters IV Catheter Type (from Nrs): Peripheral IV Assessment/Plan Assessment/Plan 1. r cerebellar cva (b) angiogram ct andf MR show potential vertebral dissection of L vertebral artery (cva is R sided), will plan vascular consultation for further clarification, unclear if intervention (?stent) is possible or recommended 2. cough, check cxr 3. dyspnea on exertion, check cxr Result Diagram: 09/03/1861109/03/18 06 Subjective 24 Hr Interval Summary Free Text/Dictation taday mentions some cough and some sob and dyspnea on exertion some sputum Exam/Review of Systems Exam Vitals Vital Signs Date Temp Pulse Resp B/P (MAP) Pulse Ox O2 O2 Flow FiO2 Time Delivery Rate 09/04/18 56 12:00 09/04/18 98.2 18 115/63 98 Room Air 10:53 (80) 09/02/18 2.0 12:28 Intake and Output 09/03/18 09/03/18 09/04/18 1515:00 23:00 07:00 IntakeIntake Total 2000 ml 1200 ml BalanceBalance 2000 ml 1200 ml Exam nad, ctab, rrr Medications Medication Current Medications Aspirin (Ecotrin) 325 mg DAILY PO Last administered on 09/04/18 08:38; Admin Dose 325 MG; Start 09/01/18 at 09:00 Atorvastatin Calcium (Lipitor) 40 mg HS PO Last administered on 09/03/18at 21:41; Admin Dose 40 MG; Start 09/01/18 at 21:00 Amlodipine Besylate (Norvasc) 5 mg DAILY PO Last administered on 09/04/18 08:38; Admin Dose 5 MG; Start 09/01/18 at 15:30 Heparin Sodium (Porcine) (Heparin (5000 Units/1ml)) 5,000 unit BID SC Last administered on 09/04/18 09:26; Admin Dose 5,000 UNIT; Start 09/02/18 at 21:00 Benzonatate (Tessalon) 200 mg TID PRN PO COUGH Last administered on 09/04/18 08:38; Admin Dose 200 MG; Start 09/04/18 at 02:05 PIA SORIANO MD Sep 04, 2018 13:10
[2018-09-04] MEDS: ATORVASTATIN 40 MG TAB PO SCH (20:41)
[2018-09-05] VITALS (9 sets, daily range): BP systolic 119–129; BP diastolic 61–71; PULSE 52–78; RESP 18–20
[2018-09-05] MEDS: BENZONATATE 100 MG CAP PO PRN (07:07)
[2018-09-05] MEDS: ASPIRIN (EC) 325 MG TAB PO SCH (08:19)
[2018-09-05] MEDS: AMLODIPINE 5 MG TAB PO SCH (08:20)
[2018-09-05] MEDS: HEPARIN 5,000 UNIT/1 ML VIAL SC SCH (08:33)
[2018-09-05] MEDS ORDERED: ASPI325T32 PO (10:31)
[2018-09-05] MEDS ORDERED: AMLO-145 PO (10:31)
[2018-09-05] MEDS ORDERED: ATOR40TA68 PO (10:31)
--- NOTE | 2018-09-05 10:32 | PDOCDIS ---
Discharge Instructions CONDITION [id number] Patient Condition: [id number] Good HOME CARE INSTRUCTIONS: [id number] Diet Instructions: [id number] Low Fat /Cholesterol ACTIVITY: [id number] Activity Restrictions: [id number] Slowly Increase Activity FOLLOW UP/APPOINTMENTS Follow-up Plan pcp [address] Gallego 1 week KALEB VILLALPANDO MD Sep 05, 2018 10:32
--- NOTE | 2018-09-05 11:24 | PN ---
Date/Time of Note Date/Time of Note DATE: 09/05/18 TIME: 11:21 Subjective Doing well. Mildly unsteady while walking. No focal weakness. Speech has been normal Objective Vitals Vital Signs Date Temp Pulse Resp B/P (MAP) Pulse Ox O2 O2 Flow FiO2 Time Delivery Rate 09/05/18 65 08:00 09/05/18 98.0 18 119/61 98 07:53 (80) 09/04/18 Room Air 15:47 09/02/18 2.0 12:28 Intake and Output 09/04/18 09/04/18 09/05/18 1515:00 23:00 07:00 IntakeIntake Total 2000 ml 500 ml BalanceBalance 2000 ml 500 ml Neck supple Lungs clear to auscultation Cardiac regular rate and rhythm Abdomen soft nontender nondistended normoactive bowel sounds No edema No focal weakness or numbness. Mild ataxia Results Result Diagram: 09/03/18 0612 09/03/18 0612 Medications Medications Current Medications Aspirin (Ecotrin) 325 mg DAILY PO Last administered on 09/05/18at 08:19; Admin Dose 325 MG; Start 09/01/18 at 09:00 Atorvastatin Calcium (Lipitor) 40 mg HS PO Last administered on 09/04/18at 20:41; Admin Dose 40 MG; Start 09/01/18 at 21:00 Amlodipine Besylate (Norvasc) 5 mg DAILY PO Last administered on 09/05/18at 08:20; Admin Dose 5 MG; Start 09/01/18 at 15:30 Heparin Sodium (Porcine) (Heparin (5000 Units/1ml)) 5,000 unit BID SC Last administered on 09/05/18at 08:33; Admin Dose 5,000 UNIT; Start 09/02/18 at 21:00 Benzonatate (Tessalon) 200 mg TID PRN PO COUGH Last administered on 09/05/18at 07:07; Admin Dose 200 MG; Start 09/04/18 at 02:05 VTE Prophylaxis Risk score (from Nsg)>0 risk: 1 SCD applied (from [facility]sg): Yes Lines/Catheters IV Catheter Type: Saline Lock Torres in Place: No Assessment/Plan Assessment/Plan 62-year-old male with acute right cerebellar ischemic stroke Moderate to severe left vertebral artery stenosis Rule out left vertebral artery dissection. Case was discussed with Dr. Xavier. He recommended neck CTA. Proceed with neck CTA Continue aspirin Neurology follow-up Discharge planning today if okay with neurology. KALEB VILLALPANDO MD Sep 05, 2018 11:24
[2018-09-05] MEDS ORDERED: IOHEXOL 100 ML ONE ×2 (12:53→12:59)
[2018-09-05] MEDS ORDERED: SOD CHLORIDE 0.9% 100 ML ONE ×2 (12:53→12:59)
--- NOTE | 2018-09-05 14:42 | CONS ---
Assessment/Plan Assessment/Plan Assessment/Plan (Recall) 62 M w/o reported cerebrovascular risk factors, who presents for evaluation of dizziness, incoordination, and falls x 2 days.. 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 CTA H/N and MRI Head and neck are notable for a L vert artery irregularity suspicious for thrombus vs. dissection. UDS + amphetamines, a possible contributor to dissection.. Echocardiogram w/o bubble study is unrevealing. RPR neg; ESR 2 P: Continue asa/lipitor daily for now PT/OT/ST as necessary Other management and supportive care per primary Neurologically cleared for d/c Consultation Date/Type/Reason Admit Date/Time Aug 31, 2018 at 19:22 Type of Consult Neurology Reason for Consultation stroke Requesting Provider: BRIGIDO STEELE MD Date/Time of Note DATE: 09/05/18 TIME: 14:42 24 HR Interval Summary Free Text/Dictation continues acute care Exam/Review of Systems Exam Vitals Vital Signs Date Temp Pulse Resp B/P (MAP) Pulse Ox O2 O2 Flow FiO2 Time Delivery Rate 09/05/18 98.0 52 18 121/71 12:07 (88) 09/05/18 98 07:53 09/04/18 Room Air 15:47 09/02/18 2.0 12:28 Intake and Output 09/04/18 09/04/18 09/05/18 1515:00 23:00 07:00 IntakeIntake Total 2000 ml 500 ml BalanceBalance 2000 ml 500 ml Exam Comprehensive; stable from prior Results Result Diagram: 09/03/18 0612 09/03/18 0612 Medications Medication Current Medications Aspirin (Ecotrin) 325 mg DAILY PO Last administered on 09/05/18at 08:19; Admin Dose 325 MG; Start 09/01/18 at 09:00 Atorvastatin Calcium (Lipitor) 40 mg HS PO Last administered on 09/04/18at 20:41; Admin Dose 40 MG; Start 09/01/18 at 21:00 Amlodipine Besylate (Norvasc) 5 mg DAILY PO Last administered on 09/05/18at 08:20; Admin Dose 5 MG; Start 09/01/18 at 15:30 Heparin Sodium (Porcine) (Heparin (5000 Units/1ml)) 5,000 unit BID SC Last administered on 09/05/18at 08:33; Admin Dose 5,000 UNIT; Start 09/02/18 at 21:00 Benzonatate (Tessalon) 200 mg TID PRN PO COUGH Last administered on 09/05/18at 07:07; Admin Dose 200 MG; Start 09/04/18 at 02:05 CARLOS PAULINO 17, 2019 14:42
== END 2018-09-05 15:28 | disposition home health service (06) | DRG 66 ==
LOC: E/R 16:11 → TEL 19:22
PROVIDERS: ADMIT Internal Medicine; ATTEND Internal Medicine
DX: I63.9 Cerebral infarction, unspecified (principal); I65.02 Occlusion and stenosis of left vertebral artery; R27.8 Other lack of coordination; D72.829 Elevated white blood cell count, unspecified; Z87.891 Personal history of nicotine dependence; Z79.82 Long term (current) use of aspirin
CPT/HCPCS: 36415; 70450; 70496; 70498; 70544; 70549; 70551; 71045; 71046; 71250; 74176; 80048; 80053; 80061; 80307; 81003; 82550; 83036; 83735; 84100; 84443; 85025; 85610; 85651; 86592; 87086; 92610; 93005; 93306; 97110; 97116; 97163; 97530; J1644; J7030; Q9967